=== PATIENT | female | born 1990 | race Caucasian/White ===

== ENCOUNTER 2019-12-28 09:45 | Emergency (ER) | payer BC, SELFPAY ==
[2019-12-28 10:06] VITALS: BP 143/83; PULSE 86; RESP 18; TEMP 36.8; O2SAT 100; BMI 23.3
--- NOTE | 2019-12-28 10:27 | ED_ITS ---
HPI - Back Pain/Injury General Chief Complaint: Back Pain/Injury Stated Complaint: Back pain lower Time Seen by Provider: 12/28/19 10:02 Source: patient Limitations: no limitations History of Present Illness HPI Narrative: CC: Right flank pain HPI: The patient is a 29-year-old female who states that she developed right flank pain at 2:00 a.m. in the morning. She describes the discomfort as a stabbing twisting discomfort. It did not radiate anywhere. She admits to history of kidney stones in the past but this does not feel like her typical kidney stones. The discomfort was 6/10 in intensity. She denies any fall or injury as well as any lifting or straining. She denies being . She states that her last menstrual period was 3 weeks ago. She states that earlier in the week she had symptoms of increased urgency fullness and frequency. She had the sensation that she had to go to the bathroom but could not going had decreased volumes. She denies any dysuria. She has had no previous kidney infections or urinary tract infections but admits to having kidney stones. She denies a history of diabetes mellitus hypertension, heart murmur, or asthma. She admits to smoking cigarettes periodically drinking alcohol but does not use any drugs or marijuana. Related Data Previous Rx's Medication Instructions Recorded cefdinir 300 mg PO BID #14 cap 12/28/19 naproxen [Naprosyn] 500 mg PO BID PRN #20 tab 12/28/19 ondansetron HCl [Zofran] 4 mg PO Q6H PRN #12 tab 12/28/19 Allergies Allergy/AdvReac Type Severity Reaction Status Date / Time No Known Drug Allergies Allergy Verified 12/28/19 10:08 Review of Systems Review of Systems Narrative: REVIEW OF SYSTEMS: CONSTITUTIONAL: The patient denies any fever chills sweats change in weight. NEUROLOGICAL: She has had no headache numbness tingling paresthesias anesthesia is paresis or abnormal behavior. EENT: She denies any sore throat sinus congestion. CARDIO-PULMONARY: She has had no chest pain cough shortness of breath difficulty in breathing palpitations or dizziness. HEMOTOLOGICAL: She has had no bleeding abnormalities or bruising. GASTROINTESTINAL: She has been nauseous but has had no vomiting diarrhea change in bowel habit GENITAL URINARY: Genitourinary symptoms are as noted. MUSCULOSKELETAL/ RHEUMATOLOGICAL: She has had a little bit of a backache pr imarily on the right side. DERMATOLOGICAL: No skin rash Patient History Social History Smoking Status: Current some day smoker Smoking Status: Current some day smoker tobacco type: cigarettes alcohol intake frequency: holidays/special occasions only Substance Use Type: does not use Exam Narrative Exam Narrative: PHYSICAL EXAM: CONSTITUTIONAL: Awake, Alert, Oriented, Coherent, Cooperative in NAD. Does not appear toxic or ill. HEAD: AT/NC EENT: PERRL, FROM of eyes, no discharge, no nystagmus MOUTH: Patient is wearing a mask NECK: Supple, no obvious JVD, Trachea is midline without stridor, no palpable LN. SPINE: Palpation of the cervical, Thoracic, Lumbar or Sacral spine reveals no gross deformity or tenderness. Tender to palpation over the right costovertebral angle. THORAX: No deformity, retractions, chest wall tenderness. LUNGS: Clear, symmetrical breath sounds without respiratory distress. HEART: Normal heart tones, regular rhythm and rate without murmur. ABDOMEN: Soft, non-tender, rebound, rigidity or palpable mass. LYMPHATIC: no palpable spleen. EXTREMITIES: No edema, deformity, tenderness or cyanosis. SKIN: No rash, bruising, petechiae or purpura. NEURO: Awake, alert, oriented, conversive, cranial nerves II-XII are symmetrical , moves all 4 extremities and is ambulatory. Initial Vital Signs Initial Vital Signs: Vital Signs Temperature 98.2 F 12/28/19 10:06 Pulse Rate 86 12/28/19 10:06 Respiratory Rate 18 12/28/19 10:06 Blood Pressure 143/83 H 12/28/19 10:06 Pulse Oximetry 100 12/28/19 10:06 Course Course Course Narrative: 1200: The patient states that her pain is much improved after the Toradol. She was informed that we are waiting for the urinalysis to be resulted. I informed her that I believe clinically she has pyelonephritis with a urinary tract infection. She has a slightly elevated white blood count at 11.8. Orders Ordered: ED Orders 12/28/19 10:05 Urinalysis and Microscopic Stat Urine Culture Stat 12/28/19 10:51 Basic Metabolic Panel Stat Complete Blood Count AUTO DIFF Stat Discontinued Medications Ceftriaxone Sodium/Dextrose (Rocephin) 1 gm in 50 mls @ 100 mls/hr IV Q24H ZONIA Last Infusion: 12/28/19 11:57 Dose: 0 mls/hr Documented by: Admin: 12/28/19 11:01 Dose: 100 mls/hr Documented by: JING Ketorolac Tromethamine (Toradol) 30 mg IV NOW ONE Stop: 12/28/19 10:18 Last Admin: 12/28/19 11:00 Dose: 30 mg Documented by: JING Ondansetron HCl (Zofran) 4 mg IV NOW ONE Stop: 12/28/19 10:57 Last Admin: 12/28/19 11:01 Dose: 4 mg Documented by: JING Vital Signs Vital signs: Vital Signs - 8 hr 12/28/19 10:06 12/28/19 12:00 Temperature 98.2 F Pulse Rate 86 72 Respiratory Rate 18 16 Blood Pressure 143/83 H Blood Pressure [Left Arm] 139/64 Pulse Oximetry 100 100 MDM - Back Pain/Injury Lab Data Result diagrams: 12/28/19 10:51 12/28/19 10:51 Labs: Lab Results 12/28/19 12/28/19 12/28/19 Range/Units 10:05 10:51 10:51 WBC 11.8 H (4.5-11.0) X10^3/uL RBC 4.14 (4.0-5.2) X10^6/uL Hgb 15.0 (12.0-16.0) g/dL Hct 42.7 (36-46) % MCV 103.1 H (80-100) fL MCH 36.3 H (26-34) PG MCHC 35.2 (30-36) % RDW 12.8 (11.6-14.8) % Plt Count 235 (150-400) X10^3/uL Neut % (Auto) 77.9 H (50-75) % Lymph % (Auto) 14.4 L (25-40) % [place] % (Auto) 7.1 (3-14) % Eos % (Auto) 0.1 L (2-4) % Baso % (Auto) 0.5 (0-2) % Neut # (Auto) 9200 H (5258-2530) /uL Lymph # (Auto) 1700 (0087-4211) /uL [place] # (Auto) 800 (0-900) /uL Eos # (Auto) 0 (0-450) /uL Baso # (Auto) 100 (0-100) /uL Sodium 135 L (137-145) mmol/L Potassium 4.3 (3.4-5.1) mmol/L Chloride 101 (98-107) mmol/L Carbon Dioxide 26 (22-32) mmol/L BUN 8 (7-17) mg/dL Creatinine 0.61 (0.52-1.04) mg/dL Estimated GFR > 60.0 (>60) mL/min BUN/Creatinine Ratio 13.1 (6-22) Glucose 91 (70-100) mg/dL Calcium 9.4 (8.4-10.2) mg/dL Urine Color Yellow Urine Appearance Cloudy Urine pH 7.5 (4.5-8.0) Ur Specific [place] 1.010 (1.000-1.035) Urine Protein 2+ H (Negative) Urine Glucose (UA) Negative (Negative) g/dL Urine Ketones Trace H (NEGATIVE) Urine Occult Blood 3+ H (Negative) Urine Nitrate Negative (Negative) Urine Bilirubin Negative (NEGATIVE) Urine Urobilinogen 0.2 (0.2) E.U./dL Ur Leukocyte Esterase 2+ H (NEGATIVE) Urine RBC 30-100/hpf H (0-5/HPF) Urine WBC 30-100/hpf H (0-5/HPF) Urine Bacteria Moderate (10-30) H (None) Ur Culture Indicated? Specimen cultured Point of Care Testing Test Results Negative Urine Dip Bedside Urine Glucose Negative Bedside Urine Bilirubin - Negative Bedside Urine Ketone +/- 5 Urine Specific [place] 1.010 Bedside Urine Occult Blood ++ Bedside Urine pH 7.5 Bedside Urine Protein ++ 100 Bedside Urine Urobilinogen - Negative Bedside Urine Nitrite - Negative Bedside Urine Leukocytes ++ 125 Esterase Discharge Plan Departure Patient Disposition: Home Clinical Impression: Acute right flank pain, Pyelonephritis UTI (urinary tract infection) Qualifiers: Urinary tract infection type: acute cystitis Hematuria presence: with hematuria Qualified Code(s): N30.01 - Acute cystitis with hematuria Discharge Date/Time: 12/28/19 12:50 Instructions: DI for Kidney Infection, DI for Low Back Pain, DI for Urinary Tract Infection (UTI) Activity Restrictions/Additional Instructions: 1. You have have a kidney infection and urinary tract infection. If you develop worsening pain, fever, nausea, and vomiting that is uncontrolled by the medications you need to return to the emergency department. 2. You need to drink 2-3 L of fluid per day to keep herself hydrated. 3. You need to be re-evaluated by your primary care physician in 48-72 hours if not improved. Prescriptions: New cefdinir 300 mg capsule 300 mg PO BID Qty: 14 RF: 0 ondansetron HCl [Zofran] 4 mg tablet 4 mg PO Q6H PRN (Reason: nausea and vomiting) Qty: 12 RF: 0 naproxen [Naprosyn] 500 mg tablet 500 mg PO BID PRN (Reason: pain) Qty: 20 RF: 0
[2019-12-28] MEDS: KETOROLAC 60 MG/2 ML VIAL 30 MG IV (11:00)
[2019-12-28] MEDS: ONDANSETRON 4 MG/2 ML INJ IV (11:01)
[2019-12-28] MEDS: CEFTRIAXONE 1 GM/50 ML FROZ.PIGGY IV (11:01)
[2019-12-28 11:08] LABS: Add Manual Diff / Slide Review NO; Basophils Absolute Auto 100 /uL (0-100); Basophils Percent Auto 0.5 % (0-2); Eosinophils Absolute Auto 0 /uL (0-450); Eosinophils Percent Auto 0.1 % (2-4); Hematocrit 42.7 % (36-46); Lymphocytes Absolute Auto 1700 /uL (1100-4500); Lymphocytes Percent Auto 14.4 % (25-40); Mean Corpuscular HGB Conc 35.2 % (30-36); Mean Corpuscular Hemoglobin 36.3 PG (26-34); Mean Corpuscular Volume 103.1 fL (80-100); Monocytes Absolute Auto 800 /uL (0-900); Monocytes Percent Auto 7.1 % (3-14); Neutrophils Absolute Auto 9200 /uL (1500-7000); Neutrophils Percent Auto 77.9 % (50-75); Platelet Count 235 X10^3/uL (150-400); Red Blood Cell Count 4.14 X10^6/uL (4.0-5.2); Red Cell Distribution Width 12.8 % (11.6-14.8); White Blood Cell Count 11.8 X10^3/uL (4.5-11.0)
[2019-12-28 11:20] LABS: BUN Creatinine Ratio 13.1 (6-22); Blood Urea Nitrogen 8 mg/dL (7-17); Calcium 9.4 mg/dL (8.4-10.2); Carbon Dioxide 26 mmol/L (22-32); Chloride 101 mmol/L (98-107); Estimated Glomerular Filt Rate > 60.0 mL/min (>60); Glucose 91 mg/dL (70-100); HEMOLYSIS < 15 (0-50); Potassium 4.3 mmol/L (3.4-5.1); Sodium 135 mmol/L (137-145)
[2019-12-28 12:00] VITALS: BP 139/64; PULSE 72; RESP 16; O2SAT 100
[2019-12-28 12:07] LABS: Appearance Urine UA CLOUDY; Bilirubin Urine UA NEGATIVE (NEGATIVE); Color Urine UA YELLOW; Glucose Urine UA NEGATIVE (Negative); Ketones Urine UA TRACE (NEGATIVE); Leukocyte Esterase Urine UA 2+ (NEGATIVE); Nitrite Urine UA NEGATIVE (Negative); Occult Blood Urine UA 3+ (Negative); Protein Urine UA 2+ (Negative); Urobilinogen Urine UA 0.2 E.U./dL (0.2)
[2019-12-28 12:19] LABS: pH Urine UA 7.5 (4.5-8.0)
[2019-12-28 12:20] LABS: Bacteria Urine Moderate (10-30); Culture Indicated Urine Specimen Cultured; RBC Urine 30-100/HPF (0-5/HPF); WBC Urine 30-100/HPF (0-5/HPF)
== END 2019-12-28 12:50 | disposition home or self-care (01) ==
PROVIDERS: Emergency Provider Emergency Medicine
DX: R10.9 Unspecified abdominal pain (principal); N12 Tubulo-interstitial nephritis, not specified as acute or chronic; N30.01 Acute cystitis with hematuria; Z87.442 Personal history of urinary calculi; D72.829 Elevated white blood cell count, unspecified
CPT/HCPCS: 36415; 80048; 81001; 81003; 81025; 85025; 87077; 87086; 96365; 96375; 99284; J1885; J2405